=== PATIENT | female | born 1990 | race Two or more races ===

== ENCOUNTER 2021-09-10 15:26 | Outpatient (CLI) | payer SELFPAY ==
[2021-09-17 14:47] LABS: HPV Reflexed? NOT INDICATED
== END 2021-09-10 23:59 | disposition home or self-care (01) ==
LOC: LABSPEC 15:30
PROVIDERS: Visit Provider Obstetrics & Gynecology
DX: Z12.4 Encounter for screening for malignant neoplasm of cervix (principal)
CPT/HCPCS: 88175; G0145